=== PATIENT | female | born 1930 | race Caucasian/White ===

== ENCOUNTER 2017-02-18 20:25 | Emergency (ER) | payer MEDICARE, OTHER ==
[~2017-02-18] VITALS: Ht 157.5 cm; Wt 95.1 kg
[~2017-02-18 20:25] MED LIST: ACTO15TA6 OR; ASPI-130 PO; COZA50TA OR; FURO40TA PO; HYDR10TA16 PO; LIPI10TA OR; PLAV75TA PO; POTA1080 OR; RANI150 PO; SYNT100T PO; VITA100018 PO; VITA100020 IJ; ZYRT10TA12 PO
[2017-02-18 20:32] VITALS: BP 160/80; PULSE 77; RESP 16; TEMP 97.9; O2SAT 96
[2017-02-18] MEDS ORDERED: SODIUM CHLORIDE 0.9% FLUSH 10 ML FLUSH IV FLUSH PRN (20:45)
--- NOTE | 2017-02-18 20:46 | PD ---
HPI Chief Complaint: flank pain Time Seen by Provider: 20:38 Travel History International Travel<30 days: No Contact w/Intl Traveler<30days: No Traveled to known affect area: No History of Present Illness HPI 86-year-old female here for evaluation of right flank pain. Patient has been having intermittent sharp pains in her right flank area for the last 2 days, mild to moderate in intensity, no modifying factors. She states she went to an urgent care facility today where she was noted to have hematuria, and was referred here for further evaluation. She reports history of kidney stones, 2 of which required lithotripsy. She denies dysuria. No fevers or chills. No nausea or vomiting. Currently the pain is very mild. No paresthesias or motor deficits. PFSH Past Medical History Arthritis: Yes Autoimmune Disease: No Anxiety: Yes Depression: No Cancer: No Cardiovascular Problems: Yes High Cholesterol: Yes Chemotherapy: No Diabetes: Yes (TYPE II) Endocrine: No Genitourinary: Yes (KIDNEY STONE HX) Hepatitis: No Hiatal Hernia: No Immune Disorder: No Musculoskeletal: Yes (SHOULDERS AND NECK ARTHRITIS,MUSCLE SPASMS) Neurologic: Yes Psychiatric: Yes (CLAUSTROPHOBIA,ANXIETY) Reproductive: No Respiratory: Yes Radiation Therapy: No Thyroid Disease: Yes Past Surgical History Abdominal Surgery: No AICD: No Arteriovenous Shunt: No Body Medical Devices: pins and plates Cardiac Surgery: No Ear Surgery: No Endocrine Surgery: No Eye Surgery: Yes (BRE CATARACTS) Genitourinary Surgery: Yes (2 KIDNEY STONE REMOVAL-1 OPEN, 1 LITHOTRIPSY) Gynecologic Surgery: No Insulin Pump: No Joint Replacement: No Oral Surgery: No Pacemaker: No Thoracic Surgery: Yes (RT BREAST LUMPECTOMY) Social History Tobacco Use: No (Former smoker) Substance Use: No Allergies-Medications (Allergen,Severity, Reaction): Coded Allergies: No Known Allergies (Unverified , 02/18/17) Reported Meds & Prescriptions Reported Meds & Active Scripts Active Macrobid (Nitrofurantoin Monoh/Nitrofur Macro) 100 Mg Cap 100 Mg PO BID 7 Days Reported Prednisone 5 Mg Tab 5 Mg PO DAILY Lipitor (Atorvastatin Calcium) 10 Mg Tab 10 Mg PO DAILY B12 (Cyanocobalamin) 1,000 Mcg Tab 1,000 Mcg PO DAILY Actos (Pioglitazone HCl) 15 Mg Tab 15 Mg PO , W, F Furosemide 20 Mg Tab 20 Mg PO DAILY PRN Plavix (Clopidogrel Bisulfate) 75 Mg Tab 75 Mg PO DAILY Synthroid (Levothyroxine Sodium) 112 Mcg Tab 112 Mcg PO DAILY Cozaar (Losartan Potassium) 50 Mg Tab 50 Mg PO DAILY Aspirin 81 (Aspirin) 81 Mg Tabdr 81 Mg PO M, W, FR Potassium Chloride ER (Potassium Chloride) 10 Meq Cap 10 Meq PO DAILY Magnesium Oxide 400 Mg Tab 400 Mg PO DAILY Zantac (Ranitidine HCl) 150 Mg Tab 150 Mg PO BID Review of Systems Except as stated in HPI: all other systems reviewed are Neg Physical Exam Narrative GENERAL: Well-developed, well-nourished, comfortable, no acute distress. SKIN: Focused skin assessment warm/dry. No rash. HEAD: Atraumatic. Normocephalic. EYES: Pupils equal and round. No scleral icterus. No injection or drainage. ENT: Mucous membranes pink and moist. NECK: Trachea midline. No JVD. CARDIOVASCULAR: Regular rate and rhythm. RESPIRATORY: No accessory muscle use. Clear to auscultation. Breath sounds equal bilaterally. GASTROINTESTINAL: Abdomen soft, non-tender, nondistended. MUSCULOSKELETAL: No obvious deformities. No clubbing. No cyanosis. No edema. No midline vertebral step-off or tenderness. No CVA tenderness. NEUROLOGICAL: Awake and alert. No obvious cranial nerve deficits. Motor grossly within normal limits. Normal speech. PSYCHIATRIC: Appropriate mood and affect; insight and judgment normal. Data Data Last Documented VS Vital Signs Date Time Temp Pulse Resp B/P Pulse Ox O2 Delivery O2 Flow Rate FiO2 02/18/17 22:27 71 18 132/71 96 02/18/17 21:36 Room Air 02/18/17 20:32 97.9 Orders Complete Blood Count With Diff (02/18/17 20:43) Comprehensive Metabolic Panel (02/18/17 20:43) Lipase (02/18/17 20:43) Prothrombin Time / Inr (Pt) (02/18/17 20:43) Act Partial Throm Time (Ptt) (02/18/17 20:43) Urinalysis - C+S If Indicated (02/18/17 20:43) Ct Abd/Pel W Iv Contrast(Rout) (02/18/17 20:43) Iv Access Insert/Monitor (02/18/17 20:43) Ecg Monitoring (02/18/17 20:43) Oximetry (02/18/17 20:43) Sodium Chloride 0.9% Flush (Ns Flush) (02/18/17 20:45) Urine Culture (02/18/17 20:50) Ceftriaxone Inj (Rocephin Inj) (02/18/17 21:30) Iohexol 350 Inj (Omnipaque 350 Inj) (02/18/17 21:35) Labs Laboratory Tests Test 02/18/17 02/18/17 20:48 20:50 White Blood Count 10.4 TH/MM3 Red Blood Count 4.09 MIL/MM3 Hemoglobin 12.4 GM/DL Hematocrit 37.0 % Mean Corpuscular Volume 90.5 FL Mean Corpuscular Hemoglobin 30.4 PG Mean Corpuscular Hemoglobin 33.5 % Concent Red Cell Distribution Width 13.0 % Platelet Count 320 TH/MM3 Mean Platelet Volume 7.8 FL Neutrophils (%) (Auto) 74.5 % Lymphocytes (%) (Auto) 14.1 % Monocytes (%) (Auto) 8.8 % Eosinophils (%) (Auto) 1.8 % Basophils (%) (Auto) 0.8 % Neutrophils # (Auto) 7.7 TH/MM3 Lymphocytes # (Auto) 1.5 TH/MM3 Monocytes # (Auto) 0.9 TH/MM3 Eosinophils # (Auto) 0.2 TH/MM3 Basophils # (Auto) 0.1 TH/MM3 CBC Comment DIFF FINAL Differential Comment Prothrombin Time 11.2 SEC Prothromb Time International 1.0 RATIO Ratio Activated Partial 26.3 SEC Thromboplast Time Sodium Level 144 MEQ/L Potassium Level 3.9 MEQ/L Chloride Level 107 MEQ/L Carbon Dioxide Level 28.2 MEQ/L Anion Gap 9 MEQ/L Blood Urea Nitrogen 21 MG/DL Creatinine 0.92 MG/DL Estimat Glomerular Filtration 58 ML/MIN Rate Random Glucose 95 MG/DL Calcium Level 8.9 MG/DL Total Bilirubin 0.6 MG/DL Aspartate Amino Transf 16 U/L (AST/SGOT) Alanine Aminotransferase 23 U/L (ALT/SGPT) Alkaline Phosphatase 73 U/L Total Protein 7.1 GM/DL Albumin 3.6 GM/DL Lipase 116 U/L Urine Color YELLOW Urine Turbidity CLEAR Urine pH 5.5 Urine Specific [place] 1.019 Urine Protein NEG mg/dL Urine Glucose (UA) NEG mg/dL Urine Ketones NEG mg/dL Urine Occult Blood MOD Urine Nitrite NEG Urine Bilirubin NEG Urine Leukocyte Esterase NEG Urine RBC 3-5 /hpf Urine WBC 9-14 /hpf Urine Squamous Epithelial 0-5 /hpf Cells Urine Bacteria MANY /hpf Microscopic Urinalysis Comment CULTURE INDICATED MDM Medical Decision Making Medical Screen Exam Complete: Yes Emergency Medical Condition: Yes Differential Diagnosis Nephrolithiasis, UTI, polynephritis, dissection, AAA, musculoskeletal pain Narrative Course Vital signs show heart rate 77, blood pressure 160/80, pulse ox 96% on room air , oral temp of 97.9 from high. CBC is essentially unremarkable. CMP is essentially unremarkable. UA shows moderate occult blood, 9-14 wbc's, many bacteria, culture indicated. CT abdomen pelvis: CONCLUSION: 1. Small to moderate size retrocardiac hiatal hernia. 2. The kidneys are unremarkable in appearance with no renal calculi or obstruction. 3. The urinary bladder appears unremarkable. 4. Mild diverticulosis. Patient was made aware of all findings. She is sitting on the stretcher very comfortably. She was given a dose of IV Rocephin. She is stable for discharge home with outpatient follow-up with her primary care physician this week. She will be discharged home with a prescription for Macrobid. She was informed on when to return to the emergency department. She verbalizes understanding and agreement with plan. Diagnosis Primary Impression: UTI (urinary tract infection) Qualified Code: N10 - Acute pyelonephritis Referrals: Primary Care Physician 1 week Additional Instructions: Take antibiotic as prescribed. Follow-up with your primary care physician this week. Return to the emergency department for worsening symptoms or any other concerns. Scripts Nitrofurantoin Monohydrate Macrocrystals (Macrobid)100 Mg [id number] Mg PO BID 7 Days Ref 0 Prov:Felipe King MD 02/18/17 Disposition: DISCHARGE HOME Condition: Stable Felipe King MD Feb 18, 2017 20:46
[2017-02-18 20:55] LABS: AUTOMATED NEUTROPHIL # 7.7 TH/MM3 (1.8-7.7); BASOPHIL # 0.1 TH/MM3 (0-0.2); BASOPHIL % 0.8 % (0.0-2.0); EOSINOPHIL # 0.2 TH/MM3 (0-0.4); EOSINOPHIL % 1.8 % (0.0-4.0); HEMO FLAGS DIFF FINAL; LYMPH % 14.1 % (9.0-44.0); LYMPHOCYTE # 1.5 TH/MM3 (1.0-4.8); MEAN CELL VOLUME 90.5 FL (80.0-100.0); MEAN CORPUSCULAR HEMOGLOBIN 30.4 PG (27.0-34.0); MEAN CORPUSCULAR HGB CONC 33.5 % (32.0-36.0); MONO % 8.8 % (0.0-8.0); NEUT % 74.5 % (16.0-70.0); PLATELET COUNT 320 TH/MM3 (150-450); RED BLOOD COUNT 4.09 MIL/MM3 (4.00-5.30); WHITE BLOOD COUNT 10.4 TH/MM3 (4.0-11.0)
[2017-02-18 20:59] LABS: GLUCOSE,URINE NEG (NEG); KETONE, URINE NEG (NEG); NITRITE,URINE NEG (NEG); PH, URINE 5.5 (5.0-8.5)
[2017-02-18 21:03] LABS: CHLORIDE 107 MEQ/L (98-107); POTASSIUM 3.9 MEQ/L (3.5-5.1); SODIUM (NA) 144 MEQ/L (136-145)
[2017-02-18 21:07] LABS: ANION GAP 9 MEQ/L (5-15); BICARBONATE 28.2 MEQ/L (21.0-32.0); BLOOD UREA NITROGEN 21 MG/DL (7-18)
[2017-02-18 21:08] LABS: APTT (PATIENT) 26.3 SEC (24.3-30.1); PROTHROMBIN TIME - PATIENT 11.2 SEC (9.8-11.6)
[2017-02-18 21:09] LABS: BLOOD, URINE MOD (NEG); URINE COLOR YELLOW (YELLW/STRAW)
[2017-02-18 21:10] LABS: BACTERIA, URINE MANY /hpf; COMMENT (UR) CULTURE INDICATED; CULTURE IF INDICATED CULTURE INDICATED; SQUAMOUS EPITHELIAL CELL URINE 0-5 /hpf (0-5)
[2017-02-18 21:10] LABS: ALT (GPT) 23 U/L (10-53); AST (GOT) 16 U/L (15-37); GLOMERULAR FILTRATION RATE 58 ML/MIN (>89)
[2017-02-18 21:11] LABS: TOTAL BILIRUBIN ADULT 0.6 MG/DL (0.2-1.0)
[2017-02-18 21:13] LABS: ALKALINE PHOSPHATASE 73 U/L (45-117)
[2017-02-18] MEDS ORDERED: POTA10CA PO (21:17)
[2017-02-18] MEDS ORDERED: PLAV75TA29 PO (21:17)
[2017-02-18] MEDS ORDERED: COZA50TA PO (21:17)
[2017-02-18] MEDS ORDERED: ACTO15TA11 PO (21:17)
[2017-02-18] MEDS ORDERED: PRED5TAB PO (21:17)
[2017-02-18] MEDS ORDERED: FURO20TA PO (21:17)
[2017-02-18] MEDS ORDERED: ASPI-110 PO (21:17)
[2017-02-18] MEDS ORDERED: LIPI10TA PO (21:17)
[2017-02-18] MEDS ORDERED: MAGN400T2 PO (21:17)
[2017-02-18] MEDS ORDERED: ZANT150T2 PO (21:17)
[2017-02-18] MEDS ORDERED: SYNT112T PO (21:17)
[2017-02-18] MEDS ORDERED: CYAN1TAB24 PO (21:17)
[2017-02-18] MEDS ORDERED: cefTRIAXone INJ 1,000 MG in SODIUM CHLORIDE 0.9% INJ 100 ML IV ONE (21:30)
[2017-02-18] MEDS ORDERED: IOHEXOL 350 MG/ML 10 ML VIAL (for RAD DIAG) IV ONE (21:35)
[2017-02-18 21:36] VITALS: BP 164/82; PULSE 78; RESP 18; O2SAT 96
--- NOTE | 2017-02-18 21:48 | RADRPT ---
EXAM DATE/TIME: 02/18/2017 21:14 [facility] COMPARISON: No previous studies available for comparison. INDICATIONS : Right flank pain x 2 days. Hematuria. IV CONTRAST: 85 cc Omnipaque 350 (iohexol) IV ORAL CONTRAST: No oral contrast ingested. RADIATION DOSE: 20.89 CTDIvol (mGy) MEDICAL HISTORY : Renal calculi. Diabetes mellitus type 2. Cardiovascular diseaseHypertension. SURGICAL HISTORY : Lithotripsy. ENCOUNTER: Initial ACUITY: 2 days PAIN SCALE: 7/10 LOCATION: Right flank TECHNIQUE: Volumetric scanning of the abdomen and pelvis was performed. Using automated exposure control and ad justment of the mA and/or kV according to patient size, radiation dose was kept as low as reasonably achievable to obtain optimal diagnostic quality images. DICOM format image data is available electro nically for review and comparison. FINDINGS: LOWER LUNGS: The visualized lower lungs are clear. LIVER: Homogeneous density without lesion. There is no dilation of the biliary tree. No calcified gallston es. SPLEEN: Normal size without lesion. PANCREAS: Within normal limits. KIDNEYS: Normal in size and shape. There is no mass, stone or hydronephrosis. ADRENAL GLANDS: Within normal limits. VASCULAR: There is no aortic aneurysm. BOWEL/MESENTERY: The stomach, small bowel, and colon demonstrate no acute abnormality. Scattered diverticuli. There is no free intraperitoneal air or fluid. ABDOMINAL WALL: Within normal limits. RETROPERITONEUM: There is no lymphadenopathy. BLADDER: No wall thickening or mass. REPRODUCTIVE: Within normal limits. INGUINAL: There is no lymphadenopathy or hernia. MUSCULOSKELETAL: Osteopenia, degenerative change and scoliosis are present. CONCLUSION: 1. Small to moderate size retrocardiac hiatal hernia. 2. The kidneys are unremarkable in appearance with no renal calculi or obstruction. 3. The urinary bladder appears unremarkable. 4. Mild diverticulosis. Sav Beltran MD on February 18, 2017 at 21:43 Board Certified Radiologist. This report was verified electronically.
[2017-02-18] MEDS ORDERED: MACR100C2 PO (21:58)
[2017-02-18 22:27] VITALS: BP 132/71
== END 2017-02-18 22:28 | disposition home or self-care (01) ==
LOC: PHED 20:25
DX: N39.0 Urinary tract infection, site not specified (principal); N10 Acute pyelonephritis; B96.20 Unspecified Escherichia coli [E. coli] as the cause of diseases classified elsewhere; E78.00 Pure hypercholesterolemia, unspecified; E11.9 Type 2 diabetes mellitus without complications; M19.90 Unspecified osteoarthritis, unspecified site; E07.9 Disorder of thyroid, unspecified
CPT/HCPCS: 74177; 80053; 81001; 83690; 85025; 85610; 85730; 87077; 87086; 87186; 96365; 99285; J0696; Q9967